=== PATIENT | male | born 2000 | race Two or more races ===

== ENCOUNTER 2022-05-24 19:11 | Emergency (ER) | payer OTHER ==
[~2022-05-24] VITALS: Ht 182.9 cm; Wt 134.7 kg
[2022-05-24] MEDS ORDERED: PANADOL (20:10)
[2022-05-24] MEDS ORDERED: [UNRECOGNIZED DRUG - OTHER] (20:11)
[2022-05-24] MEDS ORDERED: ZITHROMAX500 MG PO (22:54)
[2022-05-24] MEDS ORDERED: DOLOGEN CAPLET1 EACH PO (22:54)
[2022-05-24] MEDS ORDERED: TUSNEL LIQUID178 ML PO (22:54)
[2022-05-24] MEDS ORDERED: PROAIR HFA8.5 GM IH (22:54)
== END 2022-05-24 23:11 | disposition home or self-care (01) ==
LOC: ER 19:11
DX: U07.1 COVID-19 (principal); B34.9 Viral infection, unspecified

== ENCOUNTER 2022-05-26 14:30 | Outpatient (CLI) | payer OTHER | END 2022-05-26 15:50 | disposition home or self-care (01) | LOC: ASH CLINIC 14:30 | DX: U07.1 COVID-19 (principal) ==

== ENCOUNTER 2022-06-23 08:40 | Outpatient (CLI) | payer OTHER ==
[~2022-06-23 08:40] MED LIST: DOLOGEN CAPLET1 EACH PO; PANADOL; PROAIR HFA8.5 GM IH; TUSNEL LIQUID178 ML PO; ZITHROMAX500 MG PO; [UNRECOGNIZED DRUG - OTHER]
== END 2022-06-23 08:45 | disposition home or self-care (01) ==
LOC: PPH VACUNA 08:40
PROVIDERS: ATTEND Emergency Medicine Pediatric Emergency Medicine
DX: Z23 Encounter for immunization (principal)

== ENCOUNTER 2022-07-29 10:49 | Outpatient (CLI) | payer OTHER | END 2022-07-29 10:50 | disposition home or self-care (01) | LOC: LAB 10:49 | PROVIDERS: ATTEND Internal Medicine | DX: E55.9 Vitamin D deficiency, unspecified (principal); Z13.1 Encounter for screening for diabetes mellitus; Z13.220 Encounter for screening for lipoid disorders; Z13.29 Encounter for screening for other suspected endocrine disorder ==

== ENCOUNTER 2022-08-31 11:31 | Outpatient (CLI) | payer OTHER | END 2022-08-31 11:32 | disposition home or self-care (01) | LOC: LAB 11:31 | DX: R74.8 Abnormal levels of other serum enzymes (principal); K76.0 Fatty (change of) liver, not elsewhere classified ==

== ENCOUNTER 2022-09-23 13:24 | Outpatient (CLI) | payer OTHER | END 2022-09-23 13:29 | disposition home or self-care (01) | LOC: RAD 13:24 | PROVIDERS: ATTEND Physical Medicine & Rehabilitation | DX: M54.2 Cervicalgia (principal) ==

== ENCOUNTER 2022-10-11 01:30 | Emergency (ER) | payer OTHER ==
[~2022-10-11] VITALS: Ht 182.9 cm; Wt 134.3 kg
[2022-10-11] MEDS ORDERED: FUSION CAPSULE1 EACH PO (01:38)
[2022-10-11] MEDS ORDERED: PROTONIX20 MG PO (01:38)
[2022-10-11] MEDS ORDERED: PEPCID AC20 MG PO (01:38)
== END 2022-10-11 05:06 | disposition home or self-care (01) ==
LOC: ER 01:30
DX: R07.89 Other chest pain (principal)

== ENCOUNTER 2022-10-14 13:55 | Outpatient (CLI) | payer OTHER ==
[~2022-10-14 13:55] MED LIST changes: +FUSION CAPSULE1 EACH PO; +PEPCID AC20 MG PO; +PROTONIX20 MG PO
== END 2022-10-14 13:56 | disposition home or self-care (01) ==
LOC: LAB 13:55
PROVIDERS: ATTEND Internal Medicine
DX: J30.9 Allergic rhinitis, unspecified (principal); R74.01 Elevation of levels of liver transaminase levels; E55.9 Vitamin D deficiency, unspecified; Z13.1 Encounter for screening for diabetes mellitus; Z13.29 Encounter for screening for other suspected endocrine disorder

== ENCOUNTER → 2022-12-06 07:23 | Outpatient (CLI) | payer OTHER | END | disposition home or self-care (01) | LOC: LAB 07:23 | PROVIDERS: ATTEND Internal Medicine | DX: R74.01 Elevation of levels of liver transaminase levels (principal); K76.0 Fatty (change of) liver, not elsewhere classified ==

== ENCOUNTER 2023-02-12 07:16 | Outpatient (CLI) | payer OTHER | END 2023-02-12 07:17 | disposition home or self-care (01) | LOC: LAB 07:16 | PROVIDERS: ATTEND Internal Medicine | DX: K76.0 Fatty (change of) liver, not elsewhere classified (principal); J30.9 Allergic rhinitis, unspecified; R74.01 Elevation of levels of liver transaminase levels; E55.9 Vitamin D deficiency, unspecified; Z13.1 Encounter for screening for diabetes mellitus; Z13.29 Encounter for screening for other suspected endocrine disorder; Z13.220 Encounter for screening for lipoid disorders ==

== ENCOUNTER 2023-03-04 12:24 | Outpatient (CLI) | payer OTHER | END 2023-03-04 12:32 | disposition home or self-care (01) | LOC: TOM 12:24 | PROVIDERS: ATTEND Otolaryngology | DX: J34.2 Deviated nasal septum (principal) ==

== ENCOUNTER 2023-03-12 09:21 | Outpatient (CLI) | payer OTHER | END 2023-03-12 09:24 | disposition home or self-care (01) | LOC: LAB 09:21 | PROVIDERS: ATTEND Internal Medicine | DX: Z11.3 Encounter for screening for infections with a predominantly sexual mode of transmission (principal) ==

== ENCOUNTER 2023-03-19 21:49 | Emergency (ER) | payer OTHER ==
[~2023-03-19] VITALS: Ht 180.3 cm; Wt 95.3 kg
== END 2023-03-20 01:43 | disposition home or self-care (01) ==
LOC: ER 21:49
DX: R51.9 Headache, unspecified (principal); E86.0 Dehydration

== ENCOUNTER 2023-03-24 09:45 | Outpatient (CLI) | payer OTHER | END 2023-03-24 09:47 | disposition home or self-care (01) | LOC: LAB 09:45 | PROVIDERS: ATTEND Internal Medicine | DX: Z11.52 Encounter for screening for COVID-19 (principal); Z11.59 Encounter for screening for other viral diseases; J06.9 Acute upper respiratory infection, unspecified ==

== ENCOUNTER 2023-05-13 06:46 | Outpatient (CLI) | payer OTHER | END 2023-05-13 06:47 | disposition home or self-care (01) | LOC: LAB 06:46 | PROVIDERS: ATTEND Internal Medicine | DX: K76.0 Fatty (change of) liver, not elsewhere classified (principal); J30.9 Allergic rhinitis, unspecified; R74.01 Elevation of levels of liver transaminase levels; E55.9 Vitamin D deficiency, unspecified; R73.9 Hyperglycemia, unspecified; Z68.41 Body mass index [BMI] 40.0-44.9, adult ==

== ENCOUNTER 2023-05-17 07:18 | Emergency (ER) | payer OTHER ==
[~2023-05-17] VITALS: Ht 175.3 cm; Wt 99.8 kg
[2023-05-17] MEDS ORDERED: ZYRTEC10 M3 PO (07:32)
[2023-05-17] MEDS ORDERED: MOLNUPIRAVIR (200 MG PO (09:41)
[2023-05-17] MEDS ORDERED: FLONASE ALLERG9.9 ML NASAL (09:43)
[2023-05-17] MEDS ORDERED: TUSNEL DM LIQU473 ML PO (09:43)
== END 2023-05-17 09:50 | disposition home or self-care (01) ==
LOC: ER 07:18
DX: U07.1 COVID-19 (principal)

== ENCOUNTER 2023-06-09 | Outpatient (CLI) | payer OTHER ==
[~2023-06-09] MED LIST changes: +FLONASE ALLERG9.9 ML NASAL; +MOLNUPIRAVIR (200 MG PO; +TUSNEL DM LIQU473 ML PO; +ZYRTEC10 M3 PO
== END 2023-06-09 00:15 | disposition home or self-care (01) ==
LOC: PPH VACUNA
PROVIDERS: ATTEND Emergency Medicine Pediatric Emergency Medicine
DX: Z23 Encounter for immunization (principal)